=== PATIENT | male | born 2000 | race Two or more races ===

== ENCOUNTER 2020-03-05 05:23 | Day surgery (SDC) | payer OTHER ==
[2020-03-01 09:05] LABS: HEMATOCRIT 43.6 % (37.9-51.0); HEMOGLOBIN 15.2 g/dL (13.5-17.0); MEAN CORPUSCULAR HEMOGLOBIN 30.8 pg (27.0-33.4); MEAN CORPUSCULAR HGB CONC 34.9 g/dL (32.0-36.0); MEAN CORPUSCULAR VOLUME 88 fl (80-97); PLATELET COUNT 198 10^3/uL (150-450); RED BLOOD COUNT 4.94 10^6/uL (4.35-5.55); RED CELL DISTRIBUTION WIDTH 13.9 % (11.5-14.0); WHITE BLOOD COUNT 8.5 10^3/uL (4.0-10.5)
[2020-03-01 09:26] LABS: AMORPHOUS SEDIMENT,URINE 1+ /HPF; APPEARANCE,URINE CLOUDY; BILIRUBIN,URINE NEGATIVE (NEGATIVE); COLOR,URINE YELLOW; GLUCOSE, URINE NEGATIVE (NEGATIVE); KETONES,URINE NEGATIVE (NEGATIVE); LEUKOCYTE ESTERASE,URINE NEGATIVE (NEGATIVE); NITRITE,URINE NEGATIVE (NEGATIVE); PROTEIN,URINE NEGATIVE (NEGATIVE); URINE SPECIFIC GRAVITY 1.021
[2020-03-01 09:29] LABS: ANION GAP 11 (5-19); BLOOD UREA NITROGEN 15 mg/dL (7-20); CALCIUM 9.5 mg/dL (8.4-10.2); CARBON DIOXIDE 26 mmol/L (22-30); CHLORIDE 104 mmol/L (98-107); GLUCOSE 88 mg/dL (75-110); POTASSIUM 4.4 mmol/L (3.6-5.0)
--- NOTE | 2020-03-01 15:24 | EKG REPORT ---
SEVERITY:- NORMAL ECG - SINUS RHYTHM : Confirmed by: Jose Eduardo Sanders MD 01-Mar-2020 15:23:00
--- NOTE | 2020-03-01 18:19 | RADIOLOGY REPORT (SQ) ---
EXAM DESCRIPTION: CHEST PA/LATERAL IMAGES COMPLETED DATE/TIME: 03/01/2020 10:59 am REASON FOR STUDY: PRE-OP COMPARISON: None. TECHNIQUE: Frontal and lateral radiographic views of the chest acquired. NUMBER OF VIEWS: Two view. LIMITATIONS: None. FINDINGS: LUNGS AND PLEURA: No opacities, masses or pneumothorax. No pleural effusion. MEDIASTINUM AND HILAR STRUCTURES: No masses or contour abnormalities. HEART AND VASCULAR STRUCTURES: Heart normal size. No evidence for failure. BONES: No acute findings. HARDWARE: None in the chest. OTHER: No other significant finding. IMPRESSION: NO SIGNIFICANT RADIOGRAPHIC FINDING IN THE CHEST. TECHNICAL DOCUMENTATION: JOB ID: [id number] 2010 [employer]- All Rights Reserved Reading location - IP/workstation name: [email or web address]
[~2020-03-05 05:23] MED LIST: CEFAZOLIN 2 GM/D5W RTU 2 GM/50 ML RTUPB IV PRN; LACTATED RINGERS 1000 ML IV PRN; LIDOCAINE 0.5% INJ-PF (5 MG/ML) 50 ML SDV SUBCUT PRN
[2020-03-05] MEDS ORDERED: MIDAZOLAM 2 MG/2 ML INJ ONE (06:53)
[2020-03-05] MEDS ORDERED: PROPOFOL INJ 200 MG/20 ML VIAL IV ONE (06:53)
[2020-03-05] MEDS ORDERED: FENTANYL CITRATE INJ/PF 100 MCG/2 ML AMPUL ONE (06:53)
[2020-03-05] MEDS ORDERED: ONDANSETRON HCL INJ/PF 4 MG/2 ML SDV ONE (06:53)
[2020-03-05] MEDS ORDERED: DEXAMETHASONE SOD PHOSPHATE INJ 4 MG/1 ML VIAL ONE (06:53)
[2020-03-05] MEDS ORDERED: BUPIVACAINE HCL 0.25 % INJ/PF (2.5 MG/1 ML) 30 ML VIAL ONE (07:03)
[2020-03-05] MEDS ORDERED: CEFAZOLIN 2 GM/D5W RTU 2 GM/50 ML RTUPB IV ONE (07:03)
[2020-03-05] MEDS ORDERED: BUPIVACAINE HCL 0.5 % INJ/PF 30 ML SDV ONE (07:13)
[2020-03-05] MEDS ORDERED: LIDOCAINE 1% INJ-PF (10 MG/ML) 30 ML SDV ONE (07:13)
[2020-03-05] MEDS ORDERED: DIPHENHYDRAMINE HCL 50 MG/ML VIAL IV PRN (07:52)
[2020-03-05] MEDS ORDERED: MORPHINE SULFATE 10 MG/ML INJ IV PRN (07:52)
[2020-03-05] MEDS ORDERED: MEPERIDINE HCL/PF INJ 25 MG/1 ML DISP.SYRIN IV PRN (07:52)
[2020-03-05] MEDS ORDERED: FENTANYL CITRATE INJ/PF 100 MCG/2 ML AMPUL IV PRN ×3 (07:52)
[2020-03-05] MEDS ORDERED: PROMETHAZINE HCL INJ 25 MG/1 ML VIAL IV PRN (07:52)
[2020-03-05] MEDS ORDERED: OXYCODONE-ACETAMINOPHEN 5-325 MG TABLET PO PRN (10:03)
[2020-03-05] MEDS ORDERED: ONDANSETRON HCL INJ/PF 4 MG/2 ML SDV IV PRN (10:03)
--- NOTE | 2020-03-05 10:04 | Discharge Summary ---
Discharge Summary (SDC) - Discharge Final Diagnosis: Right Scaphoid Nonunion Date of Surgery: 03/05/20 Discharge Date: 03/05/20 Condition: Good Treatment or Instructions: Schedule Follow Up w/ Dr. Adan Lamas @ [facility] to be seen in 10-14 days or as scheduled [place]: [place]: [place]: Ice and elevate Keep splint clean/dry/intact, do not remove. If your fingers become numb please unwrap the Adria wrap but leave the splint in place, if the sensation does not return within 30 minutes please return to the emergency department. May begin finger range of motion attempting to make full fist. Please use ibuprofen (Motrin or Advil) 600-800 mg every 8 hours as needed for pain or fever DO NOT TAKE w/ TORADOL may use once TORADOL complete. You may also use acetaminophen (Tylenol) 1000 mg every 4-6 hours as needed for pain or fever. Please be aware that many medications contain acetaminophen, do not exceed a total of 1000 mg of acetaminophen every 6 hours. If ibuprofen and acetaminophen are not sufficient for your pain you may take the Percocet/[place]. Please be aware that the Percocet/[place] does contain Tylenol. Stool softener of choice when on pain medication. USE OF HOOW-HDZ-JPACKDT IBUPROFEN: Ibuprofen (Advil, Nuprin, Medipren, Motrin IB) is a medication for fever and pain control. In addition, it has anti- inflammatory effects which may be beneficial, especially in the treatment of injuries. It's best to take ibuprofen with food. Persons with ulcer disease or allergy to aspirin should notify their physician of this before taking ibuprofen. Ibuprofen can be given every four to six hours, for a total of four doses daily. Age Pain or fever dose Antiinflammatory dose 6-8 yr 200 mg (1 tab) 200 mg (1 tab) 9-11 yr 200 mg (1 tab) 200-400 mg (1-2 tab) 11-14 yr 200-400 mg (1-2 tab) 400 mg (2 tab) 15-adult 400 mg (2 tab) 600 mg (3 tab) ORAL NARCOTIC MEDICATION: You have been given a prescription for pain control. This medication is a narcotic. It's best taken with food, as nausea can result if taken on an empty stomach. Don't operate machinery or drive within six hours of taking this medication. Do not combine this medicine with alcohol, or with any medication which can cause sedation (such as cold tablets or sleeping pills) unless you get permission from the physician. Narcotics tend to cause constipation. If possible, drink plenty of fluids and eat a diet high in fiber and fruits. Please be aware that prescription narcotics also have the potential for abuse. People become addicted to these medications because of the general sense of wellbeing that they induce. This feeling along with a significant reduction in tension, anxiety, and aggression provides a stimulating seductive quality to these drugs. Once your pain is under control, we encourage you to discard your unused narcotics. Prescriptions: Oxycodone HCl/Acetaminophen [Percocet 7.5-325 mg Tablet] 1 tab PO Q6 PRN #25 tab PRN Reason: Discharge Diet: As Tolerated Respiratory Treatments at Home: Deep Breathing/Coughing, Incentive Spirometer Discharge Activity: No Lifting Over 10 Pounds, No Lifting/Push/Pulling Report the Following to Your Physician Immediately: Fever over 101 Degrees, Unusual Bleeding, Redness, Swelling, Warmth, Increased Soreness
--- NOTE | 2020-03-05 10:12 | Operative Report ---
Operative Report DATE OF SURGERY: 03/05/20 PREOPERATIVE DIAGNOSIS: Right Scaphoid Nonunion POSTOPERATIVE DIAGNOSIS: Same OPERATION: ORIF Right Scaphoid Nonunion w/ 1,2 IC BRANDON Vascularized Bone Graft SURGEON: FABRIZIO POLLOCK 1[employer] MANAGER: LAURA ROMERO ANESTHESIA: GA COMPLICATIONS: None ESTIMATED BLOOD LOSS: Minimal PROCEDURE: Indication for above procedure: 19-year-old male who sustained injury to his right wrist years ago patient continued to have persistent pain and radiographs were performed confirming chronic scaphoid nonunion. At that point we discussed treatment options including operative versus nonoperative intervention after discussing risks and benefits of each joint decision was made to proceed with operative treatment. Procedure In Detail: Patient was seen and evaluated in the preoperative holding area. The RIGHT upper extremity was initialized and marked. Patient received 2g of Ancef IV for bacterial prophylaxis. Patient was taken back to the operative room where transferred to the operative table and placed under general anesthesia. Once they were adequately anesthetized a nonsterile tourniquet was placed on the upper extremity. A surgical team debriefing was performed ensuring all instrumentation was available, the surgical procedure was discussed with possible concerns reviewed. The upper extremity was prepped with chlorhexidine and alcohol and draped in a sterile fashion. A timeout was done identifying correct patient, procedure and extremity everyone in attendance agree with this and verbalized no concerns. The extremity was elevated the tourniquet was inflated to 250 mmHg. Curvilinear skin incision was made beginning at the anatomic snuffbox and crossing adjacent to Braulio's tubercle. Blunt dissection was performed. Superficial radial nerve was identified and retracted. A small peripheral veins were coagulated bipolar cautery. EPL tendon was identified and retracted. The interval between the first and second dorsal compartment was identified and the small 1, 2 ICSRA pedicle was identified a portion of the first and second dorsal compartment was released. Attention then turned to the scaphoid. A T-shaped capsulotomy was made the proximal scaphoid was identified confirming nonunion. The nonunion site was then booked open and proximal and distal aspect debrided until normal appearing bleeding bone was identified. With an osteotome a small window was created to allow inset of the pedicle graft. Wound was then copiously irrigated with normal saline. Under C arm fluoroscopy 1.5 cm proximal to the articular surface of the distal radius was identified in order to maximize vascularity to the graft. Once this was marked out multiple drill holes were placed around the pedicle graft these were then connected with an osteotome. Gentle elevation of the graft was then performed. With a Waban elevator the periosteum and the pedicle was lifted off the distal radius and the remaining cortex proximally completed with an osteotome without injuring the pedicle. This was then carefully elevated and a proximal to distal direction. The graft was then fed under the second dorsal compartment. Wound was then copiously irrigated with normal saline. Graft was obtained from the distal radius. The nonunion site was booked open with 0.062 K wires. The pedicle graft was then inset into the nonunion site in the proximal and distal aspect of the scaphoid successfully compressed the graft. C-arm was obtained confirming appropriate placement of the graft. Any remaining intricacies were then impacted with cancellus bone. The K wire for a mini AccuTrack headless compression screw was then passed from proximal to distal along the volar third of the distal radius to avoid extrusion of the graft. A 22 mm screw was chosen and inserted which provided further compression at the recipient site. Wound was copiously irrigated with normal saline. Final C-arm fluoroscopy was obtained demonstrating optimal fixation of the scaphoid fracture with inset of the graft. Under direct visualization there was nice contour of the graft along the scaphoid articular surface. The harvest site was then filled with VITOSS synthetic bone graft. Capsule was closed with interrupted 3-0 Ethibond suture. Tourniquet was deflated and a peripheral bleeding was controlled with bipolar cautery. Subcutaneous tissues were closed with interrupted 4-0 Monocryl suture. Skin was closed running subcuticular 4-0 Monocryl reinforced with Dermabond and Steri-Strips. Patient was placed in a sugar tong splint with the wrist at neutral position. Sponge counts, instrument counts, needle counts were correct. Patient was then awoken from anesthesia. Transferred from the operating room table to the operating room stretcher. There was no intraoperative complications patient tolerated procedure well stable to PACU. Postop plan: Patient follow the office in 2 weeks at which point we will obtain radiographs. Patient will be started on bone stimulator postoperatively. Will be placed in a short arm cast at follow-up until radiographic healing is confirmed with CT scan.
--- NOTE | 2020-03-05 12:24 | RADIOLOGY REPORT (SQ) ---
EXAM DESCRIPTION: NO CHG FLUORO; WRIST RIGHT 2 VIEWS IMAGES COMPLETED DATE/TIME: 03/05/2020 10:20 am REASON FOR STUDY: ORIF RIGHT WRIST COMPARISON: None. FLUOROSCOPY TIME: 26 seconds 4 Images saved to PACS LIMITATIONS: None. PROCEDURE: ORIF right wrist FINDINGS: Images from fluoro document ORIF of scaphoid fracture with a cannulated screw. IMPRESSION: ORIF right wrist. Refer to operative note for further information. COMMENT: PQRS 6045F: Fluoroscopy time of the procedure is documented in the report. TECHNICAL DOCUMENTATION: JOB ID: [id number] 2010 [employer]- All Rights Reserved Reading location - IP/workstation name: [email or web address]
--- NOTE | 2020-03-05 12:24 | RADIOLOGY REPORT (SQ) ---
EXAM DESCRIPTION: NO CHG FLUORO; WRIST RIGHT 2 VIEWS IMAGES COMPLETED DATE/TIME: 03/05/2020 10:20 am REASON FOR STUDY: ORIF RIGHT WRIST COMPARISON: None. FLUOROSCOPY TIME: 26 seconds 4 Images saved to PACS LIMITATIONS: None. PROCEDURE: ORIF right wrist FINDINGS: Images from fluoro document ORIF of scaphoid fracture with a cannulated screw. IMPRESSION: ORIF right wrist. Refer to operative note for further information. COMMENT: PQRS 6045F: Fluoroscopy time of the procedure is documented in the report. TECHNICAL DOCUMENTATION: JOB ID: [id number] 2010 [employer]- All Rights Reserved Reading location - IP/workstation name: [email or web address]
[2020-03-05 13:04] VITALS: BP 122/68
== END 2020-03-05 12:10 | disposition home or self-care (01) ==
LOC: OROUT 05:23
PROVIDERS: ATTEND Orthopaedic Surgery
DX: S62.021K Displaced fracture of middle third of navicular [scaphoid] bone of right wrist, subsequent encounter for fracture with nonunion (principal); W21.02XD Struck by soccer ball, subsequent encounter; Z03.818 Encounter for observation for suspected exposure to other biological agents ruled out
CPT/HCPCS: 93005; 36415; 85027; 87635; 80048; 81001; 71046; 73100; 93010; 64415; 76942; 00450; 25628; C1713 ×3; J2250; J3490 ×2; J1100; J3010; J2405; J2704; J0690; C9803